=== PATIENT | female | born 1960 | race Two or more races ===

== ENCOUNTER 2022-01-05 16:17 | Emergency (ER) | payer OTHER ==
[~2022-01-05] VITALS: Ht 157.5 cm; Wt 73.5 kg
[2022-01-05] MEDS ORDERED: LOSARTAN-HCTZ1 EAC1 (16:29)
[2022-01-05] MEDS ORDERED: METFORMIN HCL1000 M3 (16:29)
[2022-01-05] MEDS ORDERED: BACTRIM DS TAB1 EACH PO (19:45)
[2022-01-05] MEDS ORDERED: PEPCID AC20 MG PO (19:45)
== END 2022-01-05 19:51 | disposition home or self-care (01) ==
LOC: ER 16:17
DX: L02.211 Cutaneous abscess of abdominal wall (principal); I10 Essential (primary) hypertension; E11.65 Type 2 diabetes mellitus with hyperglycemia; Z79.84 Long term (current) use of oral hypoglycemic drugs